=== PATIENT | male | born 1990 | race Asian ===

== ENCOUNTER 2018-05-30 20:56 | Emergency (ER) | payer BC ==
[~2018-05-30] VITALS: Ht 190.5 cm; Wt 104.0 kg
[2018-05-30 23:01] VITALS: BP 113/70
== END 2018-05-31 00:08 | disposition home or self-care (01) ==
LOC: ER 20:56
DX: Z20.89 Contact with and (suspected) exposure to other communicable diseases (principal)
CPT/HCPCS: 99283